=== PATIENT | female | born 1960 | race Caucasian/White ===

== ENCOUNTER 2017-01-17 18:39 | Emergency (ER) | payer OTHER ==
[~2017-01-17] VITALS: Ht 162.6 cm; Wt 72.6 kg
[~2017-01-17 18:39] MED LIST: ACET-704 PO; ATOR10TA PO; CLON1TAB PO; CLON2TAB2 PO; CYCL10TA2 PO; DULO60CA6 PO; FLUC50TA3 PO; GABA-586 PO; GABA400C PO; GLIP10TA PO; GLIP10TA13 PO; HYDR-971 PO; INSU100I13 SQ; INSU100V8 SQ; LISI-334 PO; LISI20TA PO; MECL12.5 PO; MELO7.5T5 PO; METF-620 PO; METF500T4 PO; METO25TA4 PO; MINE473O3 PO; MULT1TAB11 PO; OLAN15TA9 PO; OLAN5TAB3 PO; ONDA4TAB7 PO; OXYB5TAB7 PO; POLY17PO29 PO; PRED-220 PO; RISP2TAB3 PO; SITA100T PO; SITA1TBM4 PO; TRAM100T2 PO; TRAM50TA PO; VENTOLIN HFA18 GM INH
[2017-01-17 18:55] VITALS: BP 152/72
--- NOTE | 2017-01-17 19:00 | PHYS DOC ---
Past Medical History Past Medical History: Anxiety, Bipolar, Diabetes-Type II, High Cholesterol, Hypertension, Other Additional Past Medical Histor: nerve covering detoriation, MS Past Surgical History: Appendectomy, Hysterectomy, Other Additional Past Surgical Histo: Deviated nasal septum, L) oopherectomy, ovarial cyst Alcohol Use: None Drug Use: None Adult General Chief Complaint Chief Complaint: LOWER EXT PAIN [facility] HPI Patient is a 56 year old female that presents to the emergency department with complaints of left calf pain for one week. Patient states that she was laying in bed when she developed the pain. She states that it seems to be worse when she is resting. Patient does note that the pain increased and she felt a "pop" when she was ambulating the day after the pain developed in the calf. Since states that it feels like an overuse muscle but notes that she has not done anything to exert that muscle. She is noted no swelling to the area. Patient does use tobacco. She denies any recent periods of immobilization/surgeries, recent or past medical history of a DVT. She is not currently taking any blood thinners. Review of Systems Review of Systems Constitutional: Denies fever or chills [] Eyes: Denies change in visual acuity, redness, or eye pain [] HENT: Denies nasal congestion or sore throat [] Respiratory: Denies cough or shortness of breath [] Cardiovascular: No additional information not addressed in HPI [] GI: Denies abdominal pain, nausea, vomiting, bloody stools or diarrhea [] : Denies dysuria or hematuria [] Musculoskeletal: Left lower extremity pain Integument: Denies rash or skin lesions [] Neurologic: Denies headache, focal weakness or sensory changes [] Endocrine: Denies polyuria or polydipsia [] Allergies Allergies Allergies Coded Allergies Type Severity Reaction Last Updated Verified Penicillins Allergy Intermediate 01/08/14 Yes meperidine HCl Allergy Intermediate 01/08/14 Yes Physical Exam Physical Exam Constitutional: Well developed, well nourished, no acute distress, non-toxic appearance. [] HENT: Normocephalic, atraumatic, bilateral external ears normal, oropharynx moist, no oral exudates, nose normal. [] Eyes: PERRLA, EOMI, conjunctiva normal, no discharge. [] Neck: Normal range of motion, no tenderness, supple, no stridor. [] Cardiovascular:Heart rate regular rhythm, no murmur [] Lungs & Thorax: Bilateral breath sounds clear to auscultation [] Skin: Warm, dry, no erythema, no rash. [] Back: No tenderness, no CVA tenderness. [] Extremities: No tenderness, no cyanosis, no clubbing, ROM intact, left posterior calf tenderness without swelling. Neurovascular intact distally. Neurologic: Alert and oriented X 3, normal motor function, normal sensory function, no focal deficits noted. [] Current Patient Data Vital Signs Vital Signs Date Time Temp Pulse Resp B/P (MAP) Pulse Ox O2 Delivery O2 Flow Rate FiO2 01/17/17 18:55 98.6 111 18 95 Room Air 98.6 EKG EKG [] Radiology/Procedures Radiology/Procedures Ultrasound of left lower extremity, negative for DVT [] Course & Med Decision Making Course & Med Decision Making Pertinent Labs and Imaging studies reviewed. (See chart for details) [] Dragon Disclaimer Dragon Disclaimer This electronic medical record was generated, in whole or in part, using a voice recognition dictation system. Departure Departure Impression: Primary Impression: Muscle strain of left lower extremity Disposition: HOME, SELF-CARE Condition: STABLE Referrals: REGINA FIGUEROA MD (PCP) Patient Instructions: Muscle Strain Additional Instructions: Moist heat to affected area. Tylenol [id number] as labeled and is indicated for pain management. You may continue to usual or pain management medications as prescribed by pain management providers. Problem Qualifiers Primary Impression: Muscle strain of left lower extremity Encounter type: initial encounter Qualified Codes: S86.912A - Strain of unspecified muscle(s) and tendon(s) at lower leg level, left leg, initial encounter RACHEL MOLINA APRN Jan 17, 2017 19:00
--- NOTE | 2017-01-17 20:06 | RAD ---
Left Lower Extremity Venous Doppler Ultrasound History: pain Comparison: None Procedure: Color flow, duplex, spectral analysis and 2D images are obtained with and without compression in the area of the common femoral vein, superficial femoral vein - femoral vein junction, main femoral vein (superficial femoral vein) and popliteal vein. Veins of the proximal calf are also imaged. Findings: There is normal duplex flow, color flow and compressibility of all visualized vein segments. No evidence of deep venous thrombus is present. Impression: No evidence of DVT. Electronically signed by: Joey Ricci III, MD (01/17/2017 8:03 PM) [facility]
== END 2017-01-17 19:53 | disposition home or self-care (01) ==
LOC: ER 18:39
DX: S86.912A Strain of unspecified muscle(s) and tendon(s) at lower leg level, left leg, initial encounter (principal); E11.9 Type 2 diabetes mellitus without complications; E78.00 Pure hypercholesterolemia, unspecified; I10 Essential (primary) hypertension; F41.9 Anxiety disorder, unspecified; F31.9 Bipolar disorder, unspecified; F17.200 Nicotine dependence, unspecified, uncomplicated; G35 Multiple sclerosis; Z90.49 Acquired absence of other specified parts of digestive tract; Z88.0 Allergy status to penicillin; Z88.8 Allergy status to other drugs, medicaments and biological substances; Z90.721 Acquired absence of ovaries, unilateral; X58.XXXA Exposure to other specified factors, initial encounter; Y93.89 Activity, other specified; Y92.89 Other specified places as the place of occurrence of the external cause; Y99.8 Other external cause status
CPT/HCPCS: 93971; 99284-25

== ENCOUNTER 2017-08-03 10:26 | Emergency (ER) | payer OTHER | END 2017-08-03 12:05 | disposition home or self-care (01) | LOC: ER 10:26 | DX: K08.89 Other specified disorders of teeth and supporting structures (principal); E78.00 Pure hypercholesterolemia, unspecified; E11.9 Type 2 diabetes mellitus without complications; G35 Multiple sclerosis; I10 Essential (primary) hypertension; F17.200 Nicotine dependence, unspecified, uncomplicated; Z88.0 Allergy status to penicillin; Z88.8 Allergy status to other drugs, medicaments and biological substances | CPT/HCPCS: 99283 ==

== ENCOUNTER 2017-09-26 16:02 | Emergency (ER) | payer OTHER ==
[2017-09-26 16:48] LABS: ADD MAN DIFF? NO
[2017-09-26 16:52] LABS: BASO # 0.1 x10^3/uL (0.0-0.2); BASO % 1 % (0-3); EOS # 0.2 x10^3/uL (0.0-0.7); EOS % 2 % (0-3); HEMOGLOBIN 13.9 g/dL (12.0-15.5); LYMPH # 2.5 x10^3/uL (1.0-4.8); LYMPH % 24 % (24-48); MEAN CORPUSCULAR HEMOGLOBIN 29 pg (25-35); MEAN CORPUSCULAR HGB CONC 34 g/dL (31-37); MEAN CORPUSCULAR VOLUME 85 fL (79-100); MONO # 0.6 x10^3/uL (0.0-1.1); MONO % 6 % (0-9); NEUT % 67 % (31-73); PLATELET COUNT 252 x10^3/uL (140-400); RED BLOOD COUNT 4.82 x10^6/uL (3.50-5.40); RED CELL DISTRIBUTION WIDTH 13.8 % (11.5-14.5); WHITE BLOOD COUNT 10.4 x10^3/uL (4.0-11.0)
[2017-09-26] MEDS: IV NORMAL SALINE 1000ML BAG 1,000 ML IV (16:52)
[2017-09-26] MEDS: ONDANSETRON PF 4 MG/2 ML VIAL. IV (16:53)
[2017-09-26] MEDS: fentaNYL PF VIAL 100 MCG/2 ML VIAL IV (16:54)
[2017-09-26 17:06] LABS: ANION GAP 9 (6-14); BLOOD UREA NITROGEN 8 mg/dL (7-20); CALCIUM 8.3 mg/dL (8.5-10.1); CARBON DIOXIDE 24 mmol/L (21-32); CHLORIDE 94 mmol/L (98-107); CREATININE 0.6 mg/dL (0.6-1.0); GFR 102.7; GLUCOSE 143 mg/dL (70-99); POTASSIUM 4.3 mmol/L (3.5-5.1); SODIUM 127 mmol/L (136-145)
[2017-09-26 17:12] LABS: ALBUMIN 2.8 g/dL (3.4-5.0); ALK PHOS 90 U/L (46-116); ALT (SGPT) 27 U/L (14-59); AST (SGOT) 15 U/L (15-37); LIPASE 71 U/L (73-393); TOTAL BILIRUBIN 0.2 mg/dL (0.2-1.0); TOTAL PROTEIN 6.2 g/dL (6.4-8.2)
[2017-09-26 17:14] LABS: TROPONINI < 0.017 ng/mL (0.000-0.055)
[2017-09-26 17:18] LABS: BILIRUBIN,URINE NEGATIVE (NEG); CLARITY,URINE CLEAR; COLOR,URINE YELLOW; GLUCOSE,URINE NEGATIVE (NEG); NITRITE,URINE NEGATIVE (NEG); PH,URINE 6.5; PROTEIN,URINE NEGATIVE (NEG-TRACE)
[2017-09-26 17:29] LABS: BACTERIA,URINE MANY /HPF (0-FEW); RBC,URINE RARE /HPF (0-2); SQUAMOUS EPITHELIAL CELL,UR MOD /LPF
[2017-09-26 17:39] LABS: DIRECT BILIRUBIN < 0.1 mg/dL (0.0-0.2)
== END 2017-09-26 19:13 | disposition home or self-care (01) ==
LOC: ER 16:02
DX: M25.572 Pain in left ankle and joints of left foot (principal); E11.9 Type 2 diabetes mellitus without complications; E78.00 Pure hypercholesterolemia, unspecified; I10 Essential (primary) hypertension; F41.9 Anxiety disorder, unspecified; F17.200 Nicotine dependence, unspecified, uncomplicated; Z90.710 Acquired absence of both cervix and uterus; Z90.49 Acquired absence of other specified parts of digestive tract; Z88.0 Allergy status to penicillin; Z88.5 Allergy status to narcotic agent; W01.0XXA Fall on same level from slipping, tripping and stumbling without subsequent striking against object, initial encounter; Y93.89 Activity, other specified; Y99.8 Other external cause status; Y92.89 Other specified places as the place of occurrence of the external cause
CPT/HCPCS: 36415; 73502; 73564; 73610; 73630; 80048; 80076; 81001; 83690; 84484; 85025; 87086; 93005; 96361; 96374; 96375; 99285-25; J2405; J3010; J7030

== ENCOUNTER 2017-10-12 14:23 | Emergency (ER) | payer OTHER ==
[2017-10-12] MEDS: oxyCODONE/APAP 5/325 1 TAB TABLET PO ×2 (16:16)
== END 2017-10-12 16:25 | disposition home or self-care (01) ==
LOC: ER 14:23
DX: S49.92XA Unspecified injury of left shoulder and upper arm, initial encounter (principal); S49.91XA Unspecified injury of right shoulder and upper arm, initial encounter (principal); E11.9 Type 2 diabetes mellitus without complications; F31.9 Bipolar disorder, unspecified; E78.00 Pure hypercholesterolemia, unspecified; I10 Essential (primary) hypertension; Z88.0 Allergy status to penicillin; Z88.8 Allergy status to other drugs, medicaments and biological substances; W01.0XXA Fall on same level from slipping, tripping and stumbling without subsequent striking against object, initial encounter; Y93.89 Activity, other specified; Y99.8 Other external cause status; Y92.89 Other specified places as the place of occurrence of the external cause
CPT/HCPCS: 29240; 73030; 73060; 99284

== ENCOUNTER 2017-11-30 15:51 | Emergency (ER) | payer OTHER | END 2017-11-30 16:39 | disposition home or self-care (01) | LOC: ER 16:39 | DX: Z00.8 Encounter for other general examination (principal); F31.9 Bipolar disorder, unspecified; E11.9 Type 2 diabetes mellitus without complications; E78.00 Pure hypercholesterolemia, unspecified; Z88.0 Allergy status to penicillin; Z88.1 Allergy status to other antibiotic agents | CPT/HCPCS: 99283 ==

== ENCOUNTER 2018-08-04 15:43 | Emergency (ER) | payer OTHER ==
[~2018-08-04] VITALS: Ht 162.6 cm; Wt 84.4 kg
[~2018-08-04 15:43] MED LIST changes: +CLIN300C8 PO; -CLON2TAB2 PO; +CLON2TAB9 PO; -GABA-586 PO; +GABA-689 PO; +GABA300C18 PO; -GABA400C PO; +HYDR-2761 PO; +HYDR-3164 PO; -HYDR-971 PO; -METF-620 PO; +METF10007 PO; +METF500T16 PO; -METF500T4 PO; -MINE473O3 PO; +OXYC1TAB15 PO; +[UNRECOGNIZED DRUG - CODE] PO
[2018-08-04 16:11] LABS: BILIRUBIN,URINE NEGATIVE (NEG); CLARITY,URINE CLEAR; COLOR,URINE YELLOW; NITRITE,URINE NEGATIVE (NEG); PROTEIN,URINE NEGATIVE (NEG-TRACE); UROBILINOGEN,URINE 0.2 mg/dL (0.2 mg/dL)
[2018-08-04 16:23] LABS: BACTERIA,URINE 0 /HPF (0-FEW); RBC,URINE OCC /HPF (0-2); SQUAMOUS EPITHELIAL CELL,UR OCC /LPF; WBC,URINE 0 /HPF (0-4)
[2018-08-04 16:56] LABS: BASO # 0.1 x10^3/uL (0.0-0.2); BASO % 1 % (0-3); EOS # 0.1 x10^3/uL (0.0-0.7); EOS % 1 % (0-3); HEMATOCRIT 42.6 % (36.0-47.0); HEMOGLOBIN 14.1 g/dL (12.0-15.5); LYMPH # 1.8 x10^3/uL (1.0-4.8); LYMPH % 22 % (24-48); MEAN CORPUSCULAR HEMOGLOBIN 27 pg (25-35); MEAN CORPUSCULAR HGB CONC 33 g/dL (31-37); MEAN CORPUSCULAR VOLUME 81 fL (79-100); MONO # 0.5 x10^3/uL (0.0-1.1); MONO % 6 % (0-9); NEUT # 5.9 x10^3uL (1.8-7.7); NEUT % 71 % (31-73); PLATELET COUNT 287 x10^3/uL (140-400); RED BLOOD COUNT 5.25 x10^6/uL (3.50-5.40); RED CELL DISTRIBUTION WIDTH 14.3 % (11.5-14.5); WHITE BLOOD COUNT 8.4 x10^3/uL (4.0-11.0)
[2018-08-04 17:18] LABS: CALCIUM 8.9 mg/dL (8.5-10.1); CREATININE 0.7 mg/dL (0.6-1.0); GFR 85.6
[2018-08-04 17:22] LABS: ALBUMIN 3.2 g/dL (3.4-5.0); ALBUMIN/GLOBULIN RATIO 0.9 (1.0-1.7); TOTAL BILIRUBIN 0.2 mg/dL (0.2-1.0); TOTAL PROTEIN 6.9 g/dL (6.4-8.2)
[2018-08-04] MEDS ORDERED: IV NORMAL SALINE 1000ML BAG 1,000 ML IV ONE (17:30)
--- NOTE | 2018-08-04 18:25 | PHYS DOC ---
Past Medical History Past Medical History: Diabetes-Type II, Hypotension Additional Past Medical Histor: nerve covering detoriation, MS (GARY LONGO APRN) Past Surgical History: Appendectomy, Hysterectomy Additional Past Surgical Histo: Deviated nasal septum, L) oopherectomy, ovarial cyst, ablasion (GARY LONGO APRN) Alcohol Use: None Drug Use: None (GARY LONGO APRN) Adult General Chief Complaint Chief Complaint: ALTERED MENTAL STATUS HPI HPI Patient is a 58 year old female who presents with a complaint of daytime sleepiness after taking Klonopin. The patient states that she has been trying to switch her nights back to days. She states that she had been sleeping all day and staying up all night. She states that she took extra Klonopin last night to try and make sure that she would sleep through the night. She states that she took more Klonopin this morning and tried to stay awake but fell asleep. She states that her family was worried because she was asleep in bed at 2 PM. They called EMS and she was awakened by them starting IVs. She denies any other complaints. She is alert and her room at this time. (GARY LONGO APRN) Review of Systems Review of Systems Constitutional: Denies fever or chills [] Eyes: Denies change in visual acuity, redness, or eye pain [] HENT: Denies nasal congestion or sore throat [] Respiratory: Denies cough or shortness of breath [] Cardiovascular: No additional information not addressed in HPI [] GI: Denies abdominal pain, nausea, vomiting, bloody stools or diarrhea [] : Denies dysuria or hematuria [] Musculoskeletal: Denies back pain or joint pain [] Integument: Denies rash or skin lesions [] Neurologic: Denies headache, focal weakness or sensory changes [] Endocrine: Denies polyuria or polydipsia [] All other systems were reviewed and found to be within normal limits, except as documented in this note. (GARY LONGO APRN) Current Medications Current Medications Current Medications Medications (Trade) Dose Ordered Sig/Deb Start Time Stop Time Status Last Admin Dose Admin Sodium Chloride 1,000 ml @ 1,000 mls/hr 1X ONCE 08/04/18 17:30 08/04/18 18:29 DC 08/04/18 17:30 1,000 MLS/HR (SEAN WINCHESTER DO) Allergies Allergies Allergies Coded Allergies Type Severity Reaction Last Updated Verified Penicillins Allergy Intermediate 01/08/14 Yes meperidine HCl Allergy Intermediate 01/08/14 Yes (SEAN WINCHESTER DO) Physical Exam Physical Exam Constitutional: Well developed, well nourished, no acute distress, non-toxic appearance. [] HENT: Normocephalic, atraumatic, bilateral external ears normal, oropharynx moist, no oral exudates, nose normal. [] Eyes: PERRLA, EOMI, conjunctiva normal, no discharge. [] Neck: Normal range of motion, no tenderness, supple, no stridor. [] Cardiovascular:Heart rate regular rhythm, no murmur [] Lungs & Thorax: Bilateral breath sounds clear to auscultation [] Abdomen: Bowel sounds normal, soft, no tenderness, no masses, no pulsatile masses. [] Skin: Warm, dry, no erythema, no rash. [] Back: No tenderness, no CVA tenderness. [] Extremities: No tenderness, no cyanosis, no clubbing, ROM intact, no edema. [] Neurologic: Alert and oriented X 3, normal motor function, normal sensory function, no focal deficits noted. [] Psychologic: Affect normal, judgement normal, mood normal. [] (GARY LONGO APRN) Current Patient Data Vital Signs Vital Signs Date Time Temp Pulse Resp B/P (MAP) Pulse Ox O2 Delivery O2 Flow Rate FiO2 08/04/18 18:30 88 16 98 08/04/18 16:05 98.2 151/71 (97) 98.2 (SEAN WINCHESTER DO) Lab Values Laboratory Tests Test 08/04/18 15:50 08/04/18 16:35 Urine Collection Type Unknown Urine Color Yellow Urine Clarity Clear Urine pH 6.0 Urine Specific [place] >=1.030 Urine Protein Negative mg/dL (NEG-TRACE) Urine Glucose (UA) >=1000 mg/dL (NEG) Urine Ketones (Stick) Negative mg/dL (NEG) Urine Blood Negative (NEG) Urine Nitrite Negative (NEG) Urine Bilirubin Negative (NEG) Urine Urobilinogen Dipstick 0.2 mg/dL (0.2 mg/dL) Urine Leukocyte Esterase Negative (NEG) Urine RBC Occ /HPF (0-2) Urine WBC 0 /HPF (0-4) Urine Squamous Epithelial Cells Occ /LPF Urine Bacteria 0 /HPF (0-FEW) White Blood Count 8.4 x10^3/uL (4.0-11.0) Red Blood Count 5.25 x10^6/uL (3.50-5.40) Hemoglobin 14.1 g/dL (12.0-15.5) Hematocrit 42.6 % (36.0-47.0) Mean Corpuscular Volume 81 fL (79-100) Mean Corpuscular Hemoglobin 27 pg (25-35) Mean Corpuscular Hemoglobin Concent 33 g/dL (31-37) Red Cell Distribution Width 14.3 % (11.5-14.5) Platelet Count 287 x10^3/uL (140-400) Neutrophils (%) (Auto) 71 % (31-73) Lymphocytes (%) (Auto) 22 % (24-48) L Monocytes (%) (Auto) 6 % (0-9) Eosinophils (%) (Auto) 1 % (0-3) Basophils (%) (Auto) 1 % (0-3) Neutrophils # (Auto) 5.9 x10^3uL (1.8-7.7) Lymphocytes # (Auto) 1.8 x10^3/uL (1.0-4.8) Monocytes # (Auto) 0.5 x10^3/uL (0.0-1.1) Eosinophils # (Auto) 0.1 x10^3/uL (0.0-0.7) Basophils # (Auto) 0.1 x10^3/uL (0.0-0.2) Sodium Level 136 mmol/L (136-145) Potassium Level 4.0 mmol/L (3.5-5.1) Chloride Level 100 mmol/L (98-107) Carbon Dioxide Level 22 mmol/L (21-32) Anion Gap 14 (6-14) Blood Urea Nitrogen 15 mg/dL (7-20) Creatinine 0.7 mg/dL (0.6-1.0) Estimated GFR (Cockcroft-Gault) 85.6 BUN/Creatinine Ratio 21 (6-20) H Glucose Level 306 mg/dL (70-99) H Calcium Level 8.9 mg/dL (8.5-10.1) Total Bilirubin 0.2 mg/dL (0.2-1.0) Aspartate Amino Transferase (AST) 9 U/L (15-37) L Alanine Aminotransferase (ALT) 17 U/L (14-59) Alkaline Phosphatase 107 U/L (46-116) Total Protein 6.9 g/dL (6.4-8.2) Albumin 3.2 g/dL (3.4-5.0) L Albumin/Globulin Ratio 0.9 (1.0-1.7) L Laboratory Tests 08/04/18 16:35 Laboratory Tests 08/04/18 16:35 (SEAN WINCHESTER DO) EKG EKG [] (GARY LONGO APRN) Radiology/Procedures Radiology/Procedures [] (GARY LONGO APRN) Course & Med Decision Making Course & Med Decision Making Pertinent Labs and Imaging studies reviewed. (See chart for details) []The patient is given a liter fluid in the emergency department. She has been instructed to maintain tighter control on her blood sugars. She is to follow-up with her primary care provider for continued management of her medical conditions. If worsening she is to return to the emergency department. She is in agreement with this plan. (GARY LONGO APRN) Dragon Disclaimer Dragon Disclaimer This electronic medical record was generated, in whole or in part, using a voice recognition dictation system. (GARY LONGO APRN) Departure Departure Impression: Primary Impression: Hyperglycemia Additional Impression: Daytime sleepiness Disposition: HOME, SELF-CARE Condition: STABLE Referrals: REGINA FIGUEROA MD (PCP) Patient Instructions: Hyperglycemia Additional Instructions: Follow-up with your primary care provider for recheck in 2 days or return to the emergency department if worsening. Attending Signature Attending Signature I have reviewed the PA/NIGHT CLERK's note and plan of care. I was available for consultation as needed during the patient's visit in the emergency department. I agree with the clinical impression, plan, and disposition. (SEAN WINCHESTER DO) Problem Qualifiers GARY LONGO APRN Aug 04, 2018 18:25 SEAN WINCHESTER DO Aug 06, 2018 05:06
[2018-08-04 18:30] VITALS: BP 132/61
--- NOTE | 2018-08-05 06:53 | EKG ---
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
--- NOTE | 2018-08-14 11:14 | NUR ---
Late entry made to Medical Record. IV Stop time transcribed from eMAR to IV spreadsheet
== END 2018-08-04 18:46 | disposition home or self-care (01) ==
LOC: ER 15:43
DX: E11.65 Type 2 diabetes mellitus with hyperglycemia (principal); G47.10 Hypersomnia, unspecified; Z90.89 Acquired absence of other organs; Z90.710 Acquired absence of both cervix and uterus; Z88.0 Allergy status to penicillin; Z88.8 Allergy status to other drugs, medicaments and biological substances
CPT/HCPCS: 36415; 80053; 81001; 85025; 93005; 96360; 99284; J7030